=== PATIENT | male | born 1930 | race American Indian/Alaskan Native ===

== ENCOUNTER 2021-08-23 20:40 | Emergency (ER) | payer SELFPAY ==
[2021-08-23 21:43] LABS: Basophils % (Auto) 0.5 % (0.0-1.8); Eosinophils # (Auto) 0.1 K/mm3 (0.0-0.4); Eosinophils % (Auto) 0.7 % (0.0-4.3); Hematocrit 26.7 % (35.5-45.6); Hemoglobin 8.8 gm/dl (11.8-15.2); Lymphocytes # (Auto) 0.7 K/mm3 (1.2-5.4); Lymphocytes % (Auto) 8.5 % (13.4-35.0); Mean Corpuscular HGB Conc 33 % (32-34); Mean Corpuscular Volume 97 fl (84-94); Monocytes # (Auto) 0.6 K/mm3 (0.0-0.8); Monocytes % (Auto) 7.6 % (0.0-7.3); Platelet Count 239 K/mm3 (140-440); Red Blood Count 2.76 M/mm3 (3.65-5.03); Red Cell Distribution Width 16.6 % (13.2-15.2)
[2021-08-23 21:50] LABS: Alanine Aminotransferase 45 units/L (7-56); Albumin 3.5 g/dL (3.9-5); BUN/Creatinine Ratio 20; Blood Urea Nitrogen 24 mg/dL (9-20); Hemolysis Index 3
--- NOTE | 2021-08-24 07:40 | Emergency Department Report ---
HPI - General Chief Complaint: Urogenital-Male Time Seen by Provider: 08/24/21 06:56 - HPI HPI: Room 23 Patient is a 89-year-old male present with chief complaint of hematuria. The patient was recently living in [facility] approximately 2 to 3 weeks ago he started having hematuria and urinary retention. Patient had a Mccallum catheter placed and his bladder irrigated. Patient was seen by urologist and believes he was told they believe his prostate is enlarged. The patient was informed that his medical options were limited and believes the patient came back to [facility] yesterday with an indwelling Mccallum catheter. Patient has completed a course of nitrofurantoin ED Past Medical Hx - Past Medical History Additional medical history: "Prostate problems" - Surgical History Hx Open Heart Surgery: Yes - Family History Family history: no significant - Social History Smoking Status: Former Smoker Substance Use Type: None - Medications Home Medications: Home Medications Medication Instructions Recorded Confirmed Last Taken Type Tamsulosin [Flomax] 0.4 mg PO QDAY #30 cap 08/24/21 Unknown Rx levoFLOXacin [Levaquin TAB] 500 mg PO QDAY #10 tablet 08/24/21 Unknown Rx ED Review of Systems ROS: Stated complaint: PROSTATE ISSUES Other details as noted in HPI Constitutional: denies: fever Eyes: denies: eye pain ENT: denies: throat pain Respiratory: no symptoms reported Cardiovascular: denies: chest pain Endocrine: no symptoms reported Genitourinary: dysuria, hematuria Musculoskeletal: denies: back pain Neurological: denies: headache Physical Exam - Physical Exam Vital Signs: Vital Signs 08/23/21 08/23/21 20:43 20:48 Temperature 98.4 F 98.9 F Pulse Rate 81 84 Respiratory 18 16 Rate Blood Pressure 115/38 119/47 O2 Sat by Pulse 99 99 Oximetry Physical Exam: GENERAL: The patient is well-developed well-nourished male lying on stretcher not appearing to be in acute distress. [] HEENT: Normocephalic. Atraumatic. Extraocular motions are intact. Patient has moist mucous membranes. NECK: Supple. Trachea midline CHEST/LUNGS: Clear to auscultation. There is no respiratory distress noted. HEART/CARDIOVASCULAR: Regular. There is no tachycardia. There is no gallop rub or murmur. ABDOMEN: Abdomen is soft, nontender. Patient has normal bowel sounds. There is no abdominal distention. SKIN: There is no rash. There is no edema. There is no diaphoresis. NEURO: The patient is awake, alert, and oriented. The patient is cooperative. The patient has no focal neurologic deficits. The patient has normal speech. GCS 15 MUSCULOSKELETAL: There is no evidence of acute injury. ED Course Vital Signs 08/23/21 08/23/21 20:43 20:48 Temperature 98.4 F 98.9 F Pulse Rate 81 84 Respiratory 18 16 Rate Blood Pressure 115/38 119/47 O2 Sat by Pulse 99 99 Oximetry ED Medical Decision Making - Lab Data Result diagrams: 08/23/21 21:05 08/23/21 21:05 - Differential Diagnosis BPH, prostate CA, UTI Critical care attestation.: If time is entered above; I have spent that time in minutes in the direct care of this critically ill patient, excluding procedure time. ED Disposition Clinical Impression: Urinary retention, UTI (urinary tract infection) Disposition: 01 HOME / SELF CARE / HOMELESS Is pt being admited?: No Does the pt Need Aspirin: No Condition: Stable Instructions: Acute Urinary Retention, Male Additional Instructions: Return to the emergency department should you develop worsening symptoms, inability to tolerate food or liquids, high fever or any other concerns Prescriptions: Tamsulosin [Flomax] 0.4 mg PO QDAY #30 cap levoFLOXacin [Levaquin TAB] 500 mg PO QDAY #10 tablet Referrals: KATIA MCKEON MD [Staff Physician] - 3-5 Days (Dr. Mckeon is a urologist. Please follow-up with him for further evaluation) Time of Disposition: 10:41
[2021-08-24 10:19] LABS: Bacteria,Urine 2+ /HPF (Negative); Hyaline Casts,Urine 6 /LPF; Mucus,Urine FEW /HPF
[2021-08-24 10:28] LABS: Bilirubin,Urine Negative (Negative); Color,Urine Yellow (Yellow)
[2021-08-24 10:29] LABS: Blood,Urine Moderate (Negative)
[2021-08-24 10:59] VITALS: BP 114/65
== END 2021-08-24 10:28 | disposition home or self-care (01) ==
LOC: ED 20:40
DX: N39.0 Urinary tract infection, site not specified (principal); R33.9 Retention of urine, unspecified; Z87.891 Personal history of nicotine dependence
CPT/HCPCS: 36415; 80053; 81001; 85025; 87076; 87086; 87186; 99283